=== PATIENT | female | born 1940 | race Caucasian/White ===

== ENCOUNTER 2016-10-19 10:16 | Emergency (ER) | payer MEDICARE, BC ==
[~2016-10-19 10:16] MED LIST: AMBIEN DPS10 MG PO; ASA CHILDREN'S81 MG PO; COLACE-DPS100 MG PO; DULCOLAX-DPS5 MG PO; ISOPTIN SR180 MG PO; LANOXIN DPS0.125 MG PO; LEVAQUIN DPS750 MG PO; LOPRESSOR DPS50 MG PO; MOBIC15 MG PO; PERCOCET 5 DPS1 TAB PO; PERCOCET 7.5 DP1 TAB PO; PRINIVIL20 MG PO; PROTONIX40 MG PO; ULTRAM DPS50 MG PO; VALIUM-DPS2 MG PO; ZOCOR DPS20 MG PO
--- NOTE | 2016-10-26 13:30 | ER ---
ADMIT: 10/19/2016 RM/LOC: ER [facility] MR#: [id number] [address] [id number] [address] [place] [address] Emergency Room Report SEX: F AGE: 76 : 1940 DATE: 10/19/2016 ADDENDUM: This patient comes to the ER because this morning at around 9 a.m. she started having a fever and not feeling well. She has had a little bit of a cold, but otherwise feeling fine. She has had no vomiting or diarrhea, but is nauseated. She denies any pain just general malaise. On physical exam, her temperature was 101.3. Her O2 saturation was 97% on room air. I did do sepsis protocol on the patient. Her white count was 15.8. Chest x-ray showed early left lobe infiltrate. Lactic acid was 1.5. She was given Tylenol and Rocephin 2 g p.o. We did ambulate her. Once her fever came down, she was feeling quite a bit better, had no shortness of breath while ambulating. She has her daughter, who will be staying with her. I wrote a prescription for Levaquin 500 mg. She is to take it daily. If she develops any shortness of breath, she should return to the ER, otherwise she should be rechecked by Dr. Meza next week. Please see my T-sheet. VARUN Sullivan / Samuel Capellan MD / shawnl JOB #: [id number] CC: Samuel Capellan MD, Attending Physician Devin Meza MD, Family Physician
== END 2016-10-19 14:53 | disposition home or self-care (01) ==
LOC: ER 10:16
DX: J18.9 Pneumonia, unspecified organism (principal); I10 Essential (primary) hypertension; Z98.890 Other specified postprocedural states; Z79.82 Long term (current) use of aspirin; Z79.899 Other long term (current) drug therapy